=== PATIENT | female | born 2000 | race Caucasian/White ===

== ENCOUNTER 2021-12-19 15:34 | Emergency (ER) | payer BC, SELFPAY ==
--- NOTE | ~2021-12-19 | XR_ITS ---
EXAMINATION: XR chest 2V CLINICAL INFORMATION: Reason for Exam COVID positive, cough COMPARISON: None TECHNIQUE: 2 views of the chest FINDINGS: Low lung volumes. Lungs appear clear. No pneumothorax or pleural effusion. Normal cardiomediastinal silhouette. XR/XR chest 2V Impression: Low lung volumes, however lungs appear clear.
[2021-12-19 15:50] VITALS: BP 142/79; PULSE 115; RESP 16; TEMP 37.6; O2SAT 96; BMI 43.1
--- NOTE | 2021-12-19 17:10 | ED.GENADULT ---
HPI - General Adult General Chief complaint: Fever Stated complaint: covid+ Time Seen by Provider: 12/19/21 15:42 Source: patient Mode of arrival: ambulatory Limitations: no limitations History of Present Illness HPI narrative: 21 yold patient presents to the ED for Covid symptoms. mell tested postive for Covid today. patient states having bodyaches and fever and fatigue. patient denies any chest pain, shortness of breath, pleurisy, leg swelling, calf pain, or coughing up blood. Related Data Allergies Allergy/AdvReac Type Severity Reaction Status Date / Time No Known Allergies Allergy Verified 12/19/21 15:49 Review of Systems Review of Systems: FEver, bodyaches Yes all other systems are reviewed and are negative [facility] Social History Social History Advance Directives: No Advance Directives Information Provided: No Physical Exam ED Vital Signs: Vital Signs - 24 hr 12/19/21 15:50 Temperature 99.6 F Pulse Rate 115 H Respiratory Rate 16 Blood Pressure 142/79 H Pulse Oximetry 96 Oxygen Delivery Method Room Air BMI result Body Mass Index 43.1 Const General: cooperative, healthy appearing, comfortable, no acute distress, well developed, alert, awake and Physically active Orientation/consciousness: oriented to person, oriented to place, oriented to time and patient oriented x3 HENMT Head: Yes normal to inspection, Yes No palpable skull fracture present, Yes normocephalic, Yes atraumatic and No abrasion Eyes General: appearance normal, both eyes and all related structures Neck Neck: Yes normal visual inspection, Yes full ROM, Yes no lymphadenopathy, Yes no meningeal signs, Yes trachea midline, Yes supple, No anterior neck swelling and No tender Chest Chest palpation & inspection: normal inspection of the chest and normal palpation of entire chest wall Resp Effort & Inspection: normal respiratory effort and able to speak in complete sentences Auscultation: clear to auscultation bilaterally Cardio Jugular venous distension: no JVD Heart sounds: S1 normal heart sound present and S2 normal heart sound present GI Inspection: Yes normal to inspection and No abdominal wall ecchymosis Palpation (GI): Soft to palpation, not firm, nontender, no guarding and not rigid General: No CVA tenderness and Yes no CVA tenderness Back/Spine/Pelvis Back: no CVA tenderness, No CVA tenderness and No back tenderness Skin General skin exam: no rashes or lesions noted and elasticity normal Neuro General: oriented to person, oriented to place, oriented to time, patient oriented x3, gait normal, tone normal, moves all extremities and no meningeal signs Cranial nerves: Yes CN's II-XII intact bilaterally Extrem Other: Lower extremities bilaterally negative for swelling, ecchymosis, pitting edema, or calf tederness General: Yes normal to inspection and Yes full ROM Psych Appearance: grossly normal, well kempt and not disheveled Course Course Course Narrative: Known COVID. Well appearing. Reevaluation(s) Reevaluation #1: Patient educated on oral hydration, rest and self-isolation. Presently not suspect an DE or PE. Patient denies any chest pain or shortness of breath. Negative any pleurisy leg swelling or calf pain. Patient educated on respiratory distress and informed to return to the ED immediately if she has any of those symptoms. Time: 18:34 Medical Decision Making MDM Narrative Medical decision making narrative: Covid Discharge Plan Discharge Clinical Impression: COVID-19 Patient Disposition: Home, Self-Care Instructions: COVID-19 (Coronavirus Disease 2019) (ED) Additional Instructions: Return to the ED for any chest pain, shortness of breath, leg swelling, calf pain, coughing up blood, or any other concerning symptoms. Recommend self-isolation. Referrals: Becky Joy MD [Primary Care Provider] - (Covid) Stand Alone Forms: Work/School Release Discharge Date/Time: 12/19/21 17:38 Print Language: Cambodian
== END 2021-12-19 17:38 | disposition home or self-care (01) ==
PROVIDERS: Emergency Provider Emergency Medicine; PCP Internal Medicine
DX: U07.1 COVID-19 (principal); R50.9 Fever, unspecified
CPT/HCPCS: 71046; 99281; 99283

== ENCOUNTER 2022-07-28 17:42 | Outpatient (REF) | payer OTHER, SELFPAY ==
[2022-07-28 18:21] LABS: COVID-19 Test Negative (Negative); IDNOW Serial# 16C4AD1C
== END 2022-07-28 17:43 | disposition home or self-care (01) ==
LOC: HO.LAB 17:42
PROVIDERS: Visit Provider Internal Medicine
DX: Z20.822 Contact with and (suspected) exposure to COVID-19 (principal)
CPT/HCPCS: 87635

== ENCOUNTER 2022-08-18 12:42 | Emergency (ER) | payer OTHER, SELFPAY ==
--- NOTE | ~2022-08-18 | XR_ITS ---
EXAMINATION: XR FOOT, RIGHT CLINICAL INFORMATION: Work injury with pain lateral foot COMPARISON: None TECHNIQUE: AP, lateral, and oblique views of the right foot. FINDINGS: Soft tissue swelling is present laterally. The bones and soft tissues are otherwise normal. No fracture. Alignment is anatomic. Joint spaces are maintained. XR/XR foot RT min 3V IMPRESSION: Lateral soft tissue swelling without fracture.
[2022-08-18 13:15] VITALS: BP 109/83; PULSE 84; RESP 16; O2SAT 99; BMI 40.2
--- NOTE | 2022-08-18 15:33 | ED.GENADULT ---
HPI - General Adult General Chief complaint: Extremity Injury, Lower Stated complaint: R foot inj/Work related Time Seen by Provider: 08/18/22 15:25 Source: patient and RN notes reviewed Mode of arrival: ambulatory Limitations: no limitations History of Present Illness HPI narrative: 21-year-old female presents for evaluation of right foot pain. 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 She reports that she stepped funny? I felt a pop in the foot and then I was walking at all day. ? She reports that she was initially having some minor discomfort and she tried to take it easy with rest, ice, compression elevation for a few days Today while trying to come to where she could not walk up stairs and having difficulty ambulating Patient reports her pain is ?approximately over the 4th metatarsal. She reports a previous fracture to the area Related Data Allergies Allergy/AdvReac Type Severity Reaction Status Date / Time No Known Allergies Allergy Verified 12/19/21 15:49 Review of Systems Constitutional: Constitutional: Reports as per HPI, Denies chills and Denies fatigue Cardiovascular: Cardiovascular: Denies chest pain and Denies dyspnea Respiratory: Respiratory: Denies cough and Denies dyspnea Gastrointestinal: Gastrointestinal: Denies abdominal pain, Denies constipation and Denies vomiting Genitourinary: Genitourinary: Denies dysuria Musculoskeletal: Comments: Right foot pain Endocrine: Endocrine: Denies fatigue PMFSH Social History Social History Advance Directives: No Advance Directives Information Provided: No Physical Exam ED Vital Signs: Vital Signs - 24 hr 08/18/22 13:15 Pulse Rate 84 Respiratory Rate 16 Blood Pressure 109/83 Pulse Oximetry 99 Oxygen Delivery Method Room Air BMI result Body Mass Index 40.2 Const General: healthy appearing, comfortable, no acute distress, alert and awake Nutritional Appearance: well nourished Orientation/consciousness: patient oriented x3 Eyes Eyelids: Yes eyelids normal Conjunctivae: conjunctivae normal Sclerae: sclerae normal Corneas: corneas normal Pupils: Equal, round and reactive pupils present EOM: EOMs intact bilaterally Resp Effort & Inspection: normal respiratory effort, able to speak in complete sentences, no audible wheezes and not labored Skin General skin exam: no rashes or lesions noted and elasticity normal Lesions: no lesions Rashes: no rashes Neuro General: patient oriented x3 Cranial nerves: Yes Equal, round and reactive pupils present Extrem Other: Patient has mild edema to the lateral aspect of the right foot on dorsal surface. Approximately over right 4th and 5th metatarsals. No significant palpable deformity. The area is tender to palpation. No ankle edema or tenderness. Medical Decision Making Medical Decision Making MDM Narrative: X-ray of the right foot negative. Patient will be out of work for the next few days to allow her foot to heal. She will be given a postop shoe. Differential Diagnosis Fracture Contusion Of foot sprain Gout less likely Independent Interpretation I performed an independent interpretation of an: Plain X-Ray (Soft tissue swelling without fracture. Agree with Radiology read) Radiology Impression Discussion of test interpretation with radiology: I have reviewed the radiologist's reading. Discharge Plan Discharge Clinical Impression: Right foot sprain Patient Disposition: Home, Self-Care Instructions: Foot Sprain (ED) Additional Instructions: Your x-ray did not show any fractures the right foot. Continue with rest, ice, compression, elevation. If her symptoms persist after another week, I would repeat an x-ray better evaluate for occult fracture Stand Alone Forms: Work/School Release
== END 2022-08-18 15:49 | disposition home or self-care (01) ==
PROVIDERS: Emergency Provider Emergency Medicine Emergency Medical Services; PCP Nurse Practitioner
DX: S93.601A Unspecified sprain of right foot, initial encounter (principal); X50.1XXA Overexertion from prolonged static or awkward postures, initial encounter; Y93.9 Activity, unspecified; Y92.9 Unspecified place or not applicable; Y99.0 Civilian activity done for income or pay
CPT/HCPCS: 73630; 99282; 99283

== ENCOUNTER 2022-10-26 15:24 | Outpatient (REF) | payer BC, SELFPAY ==
[2022-10-29 08:34] LABS: Gliadin Deamidated IgA Ab <1.0 U/mL; Gliadin Deamidated IgG Ab <1.0 U/mL; Transglutaminase Ab IgG <1.0 U/mL; Transglutaminase IgA <1.0 U/mL
[2022-11-01 14:10] LABS: Endomysial IgA Antibody Negative (Negative)
[2022-11-01 15:18] LABS: Immunoglobulin A <5 mg/dL (47-310)
== END 2022-10-26 15:25 | disposition home or self-care (01) ==
LOC: HO.LAB 15:24
PROVIDERS: PCP Nurse Practitioner; Visit Provider Internal Medicine
DX: R19.7 Diarrhea, unspecified (principal)
CPT/HCPCS: 36415; 82784; 86231; 86258; 86364

== ENCOUNTER 2022-11-02 15:21 | Outpatient (REF) | payer BC, SELFPAY ==
[2022-11-02 17:01] LABS: Influenza A PCR NEGATIVE (Negative); Influenza B PCR NEGATIVE (Negative); Resp Syncy Virus RNA Qual PCR NEGATIVE (Negative); SARS COV2 PCR INHOUSE NEGATIVE (Negative)
== END 2022-11-02 15:22 | disposition home or self-care (01) ==
LOC: HO.LAB 15:21
PROVIDERS: Visit Provider Internal Medicine
DX: Z20.822 Contact with and (suspected) exposure to COVID-19 (principal); R43.9 Unspecified disturbances of smell and taste
CPT/HCPCS: 0241U

== ENCOUNTER 2022-11-19 19:09 | Emergency (ER) | payer BC, SELFPAY ==
--- NOTE | ~2022-11-19 | XR_ITS ---
EXAMINATION: XR KNEE, RIGHT CLINICAL INFORMATION: Injury. COMPARISON: None available. TECHNIQUE: Four views of the right knee. FINDINGS: Postsurgical changes from ACL repair. Nonspecific 1 cm well-corticated osseous fragment along the anterior third of the joint space on the lateral view. Small joint effusion. XR/XR knee RT 3V IMPRESSION: 1. Nonspecific 1 cm well-corticated osseous fragment along the anterior third of the joint space, could be sequela of prior trauma or surgery. Correlation with CT or MR could be obtained as clinically indicated. 2. Small joint effusion. 3. Postsurgical changes from ACL repair.
[2022-11-19 19:18] VITALS: BP 123/89; PULSE 103; RESP 18; TEMP 36.7; O2SAT 99; BMI 39.9
[2022-11-19] MEDS: oxyCODONE HCl Immed Release 5 MG TABLET PO (20:16)
--- NOTE | 2022-11-19 20:20 | ED_ITS ---
HPI - Extremity Injury (Lower) General Chief Complaint: Extremity Injury, Lower Stated Complaint: right knee pain, work inj Time Seen by Provider: 11/19/22 19:36 Source: patient Mode of arrival: ambulatory Limitations: no limitations History of Present Illness HPI Narrative: Right knee injury while working. 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 Patient had a history of right knee surgery for ligamentous injury in the past. Related Data Previous Rx's Medication Instructions Recorded azithromycin 250 mg tablet See Rx Instructions PO .COMPLEX #6 11/02/22 (Zithromax) tabs oxycodone 5 mg tablet 5 mg PO Q8H PRN pain #20 tabs 11/19/22 Allergies Allergy/AdvReac Type Severity Reaction Status Date / Time No Known Allergies Allergy Verified 11/02/22 14:21 Review of Systems Review of Systems: All other systems are reviewed and are negative Constitutional: Reports as per HPI and Reports no additional constitutional complaints Eyes: Reports as per HPI and Reports no additional eye complaints Reports system reviewed and no additional complaints, except as documented Cardiovascular: Reports as per HPI and Reports no additional cardiovascular complaints Respiratory: Reports as per HPI and Reports no additional respiratory complaints Gastrointestinal: Reports as per HPI and Reports no additional gastrointestinal complaints Genitourinary: Reports no additional female genitourinary complaints Musculoskeletal: Reports no additional musculoskeletal complaints Skin/Breast: Reports system reviewed and no additional complaints, except as docu Psychiatric: Reports no additional psychiatric complaints Endocrine: Reports no additional endocrine complaints Hematologic/Lymphatic: Reports no additional hematologic/lymphatic complaints Allergic/Immunologic: Reports no additional allergic/immunologic complaints Reports system reviewed and no additional complaints, except as documented and Reports Abnormal speech present. [facility] Social History Social History Advance Directives: No Advance Directives Information Provided: Yes Physical Exam Vital Signs: Vital Signs: Last Vital Signs Temp 98.1 F 11/19/22 19:18 Pulse 103 H 11/19/22 19:18 Resp 18 11/19/22 19:18 BP 123/89 11/19/22 19:18 Pulse Ox 99 11/19/22 19:18 O2 Del Method Room Air 11/19/22 19:18 BMI result Body Mass Index 39.9 Vital signs have been reviewed as appeared to be correct. Blood pressure normal. Heart rate normal. Respiration rate normal. Temperature normal. Oxygen saturation normal. Appearance: Alert. Oriented X3. No acute distress. Head: Normal external exam. Normocephalic. Atraumatic. No Marquez signs noted. No raccoon eyes noted Eyes: PERRLA. EOMI. Conjunctiva and sclera normal. Eyelids normal. ENT: TM's Normal. Pharynx normal. Uvula midline. Moist mucous membranes. No trismus noted. No drooling noted. No muffled voice noted. Neck: Normal inspection. Neck supple. FROM. No adenopathy. Thyroid Normal. No meningeal signs. No neck mass noted. CVS: Normal heart rate and rhythm. Heart sound normal. No murmurs noted. Pulses normal throughout. Respiratory: No respiratory distress. Painless inspiration. Breath sounds normal. No wheezes/rales/rhonchi noted. Chest nontender. No accessory muscle usage noted or decreased air movement noted. Abdomen: Soft and nontender. Bowel sounds normal in all 4 quadrants. No distention noted. No organomegaly noted. No visible injury noted. Back: No CVA tenderness. Full range of motion noted. Skin: Skin warm and dry. Normal skin color. Normal skin turgor. No rashes/lesions/lacerations noted. Extremities: Tenderness over medial meniscal ligament, no swelling, limited flexion of the left knee, no deformity. Neuro: Oriented X 3. Cranial nerve exam: II-XII are grossly intact No motor deficit. No sensory deficit. Reflexes normal. Medications Administered Discontinued Medications Generic Name Dose Route Start Last Admin Trade Name Freq PRN Reason Stop Dose Admin Oxycodone HCl 5 mg 11/19/22 19:50 11/19/22 20:16 Oxycodone Hcl Immed Release 5 Mg Tablet PO 11/19/22 19:51 5 mg ONCE ONE Administration Medical Decision Making Medical Decision Making MDM Narrative: Work related right knee injury, no acute fracture, likely medial meniscal ligament injury, knee immobilizer, crutches, ice, pain control, follow-up with Ortho as an outpatient. Differential Diagnosis Differential Diagnoses: The differential diagnosis associated with the presentation includes (Knee fracture, ligamentous injury, sprain.) Independent Interpretation I performed an independent interpretation of an: Plain X-Ray (Right knee: No acute fracture.) Radiology Impression Discussion of test interpretation with radiology: I have reviewed the radiologist's reading. Discharge Plan Discharge Clinical Impression: Acute internal derangement of knee Patient Disposition: Home, Self-Care Instructions: Knee Sprain (ED) Prescriptions: New oxycodone 5 mg tablet 5 mg PO Q8H PRN (Reason: pain) Qty: 20 0RF Rx Instructions: Partial Fill upon patient request. No Action azithromycin [Zithromax] 250 mg tablet See Rx Instructions PO .COMPLEX Qty: 6 0RF Rx Instructions: take 500 mg today (day 1), then 250 mg for 4 days (days 2-5) PO Referrals: Timothy Rm MD [Physician] - Sandra Hook NP [Primary Care Provider] - Stand Alone Forms: Work/School Release
[2022-11-19 21:04] VITALS: BP 120/75; PULSE 84; RESP 18; O2SAT 97
[2022-11-19 22:23] VITALS: RESP 16
== END 2022-11-19 22:12 | disposition home or self-care (01) ==
PROVIDERS: Emergency Provider Emergency Medicine; PCP Nurse Practitioner
DX: Z04.2 Encounter for examination and observation following work accident (principal); M23.91 Unspecified internal derangement of right knee
CPT/HCPCS: 73562; 99283; 99284

== ENCOUNTER 2022-11-21 14:07 | Outpatient (REF) | payer BC, SELFPAY ==
--- NOTE | ~2022-11-21 | XR_ITS ---
EXAMINATION: XR KNEE AP STANDING CLINICAL INFORMATION: Pain COMPARISON: X-ray 11/19/2022 TECHNIQUE: AP bilateral standing view of the knees was obtained. Right single patellar sunrise view. FINDINGS: AP bilateral knees: Right knee: Postsurgical changes from ACL repair redemonstrated. Tiny marginal osteophytes in the medial and lateral compartment. Previously seen osseous fragment is not clearly evident on these views. No acute fractures seen. Left knee: Anatomic alignment. Joint spaces are maintained. XR/XR knee RT 1V IMPRESSION: Postsurgical changes from ACL repair in the right knee.
--- NOTE | ~2022-11-21 | XR_ITS ---
EXAMINATION: XR KNEE AP STANDING CLINICAL INFORMATION: Pain COMPARISON: X-ray 11/19/2022 TECHNIQUE: AP bilateral standing view of the knees was obtained. Right single patellar sunrise view. FINDINGS: AP bilateral knees: Right knee: Postsurgical changes from ACL repair redemonstrated. Tiny marginal osteophytes in the medial and lateral compartment. Previously seen osseous fragment is not clearly evident on these views. No acute fractures seen. Left knee: Anatomic alignment. Joint spaces are maintained. XR/XR knee standing BI IMPRESSION: Postsurgical changes from ACL repair in the right knee.
== END 2022-11-21 14:08 | disposition home or self-care (01) ==
LOC: HO.HOSX 14:07
PROVIDERS: PCP Nurse Practitioner; Visit Provider Physician Assistant
DX: S83.241A Other tear of medial meniscus, current injury, right knee, initial encounter (principal); M23.91 Unspecified internal derangement of right knee; X58.XXXA Exposure to other specified factors, initial encounter; Y93.9 Activity, unspecified; Y92.239 Unspecified place in hospital as the place of occurrence of the external cause; Y99.0 Civilian activity done for income or pay
CPT/HCPCS: 73560; 73565

== ENCOUNTER 2022-11-22 11:51 | Outpatient (REF) | payer BC, SELFPAY ==
--- NOTE | ~2022-11-22 | MR_ITS ---
EXAMINATION: MR KNEE WITHOUT CONTRAST, RIGHT CLINICAL INFORMATION: Unspecified internal derangement of the knee. Patient reports pain, swelling, ACL and medial meniscus repair 2018. COMPARISON: X-ray 11/21/2022. TECHNIQUE: MRI of the knee without contrast was performed using routine sequences on a high-field scanner. FINDINGS: MENISCI: Medial Meniscus: T2 signal in the posterior horn with undersurface irregularity. T2 signal in the body extending to the undersurface, and horizontal signal extending to the free edge. These findings could reflect sequela of meniscal repair, age-indeterminate meniscal tear. Lateral Meniscus: T2 signal in the anterior horn extending to the superior surface. Inner margin truncation in the body. T2 signal in the body extending to the undersurface in the mid/posterior aspect. This could reflect sequela of meniscal repair, meniscal tear, or a combination of these. Horizontal fluid intensity signal extending to the undersurface of the free edge in the posterior horn, suspicious for tear. LIGAMENTS: Cruciate: Postsurgical changes status posterior ACL reconstruction. There is diffuse T2 signal within the graft, with slight ill-definition of the surface of the graft. This could reflect degenerative changes, partial tear, or a combination of these. There is amorphous tissue with heterogeneous signal in the anterior intercondylar region, which posteriorly extends to the ACL graft. This measures approximately 2 cm AP, 1.1 cm craniocaudal. Differential considerations for arthrofibrosis, torn displaced ACL graft fibers. There is T2 signal in the proximal/mid PCL reflect mucoid degeneration or sprain/partial tear. Collateral: Intact. EXTENSOR MECHANISM: Intact. ARTICULAR CARTILAGE/BONE: Patellofemoral Compartment: Cartilage thinning and fissuring in the medial aspect of the medial patellar facet. Medial Compartment: Cartilage thinning of the posterior tibial plateau, subchondral tibial edema. Marginal osteophytes. Lateral Compartment: Marginal osteophytes. Lateral tibial plateau of patchy foci of cartilage thinning. JOINT FLUID AND BURSAE: Small effusion. 0.6 centimeter ossification in the anterior intercondylar region, also seen on the recent x-ray, could reflect a loose body versus sequela for trauma.. There is low signal foci in the posterior joint space, which could reflect synovitis/debris/loose bodies. MR/MR knee RT wo con IMPRESSION: 1. Abnormal findings in the posterior horn and body of the medial meniscus, could reflect sequela of meniscal repair, age-indeterminate meniscal tear or a combination of these. 2. Abnormal findings in the anterior horn and body of the lateral meniscus, could reflect sequela of meniscal repair, meniscal tear, or a combination of these. Findings in the posterior horn, suspicious for a horizontal tear, of indeterminate age. 3. Signal changes in the ACL graft, could reflect degeneration, partial tear, or a combination of these. There is amorphous tissue in the anterior intercondylar region, extending posteriorly to the ACL graft. This measures approximately 2 x 1.1 cm. Differential considerations for arthrofibrosis, torn displaced ACL graft fibers. 4. PCL findings could reflect mucoid degeneration or sprain/partial tear. 5. Mild tricompartment arthritis. 6. Small effusion. Loose body/chronic ossification in the anterior intercondylar region. Low signal foci in the posterior joint space, could reflect synovitis/debris/loose bodies.
== END 2022-11-22 11:52 | disposition home or self-care (01) ==
LOC: HO.MRI 11:51
PROVIDERS: Visit Provider Physician Assistant
DX: M23.91 Unspecified internal derangement of right knee (principal)
CPT/HCPCS: 73721

== ENCOUNTER 2022-12-07 10:22 | Day surgery (SDC) | payer OTHER, SELFPAY ==
--- NOTE | 2022-11-29 09:45 | HO.ANESPROP2 ---
Documented by User: Maeve Fitch NP 12/05/22 13:22 HPI - Anesthesia Eval Consult details Narrative: 22yo F for Right Knee Arthroscopy 12/07/22 PMF Active Problems Active Problems: All Active Problems (Updated 11/21/22 @ 14:43 by Michelle Mckinney) Tear of medial meniscus of right knee (Acute) Internal derangement of right knee (Acute) Upper respiratory tract infection (Acute) COVID-19 (Acute) Past Medical History Medical History (Updated 11/29/22 @ 09:46 by Maeve Fitch NP) Asthma PCOS (polycystic ovarian syndrome) Family History Family history of problems with anesthesia: No Surgical History Surgical History (Updated 11/29/22 @ 09:47 by Maeve Fitch NP) H/O medial meniscus repair of right knee S/P ACL repair History of Problems with Anesthesia: No Social History Social History (Updated 11/21/22 @ 14:17 by Nima Munoz) Alcohol intake: current Alcohol intake frequency: holidays/special occasions only Patient Tobacco Use Status: Never used Tobacco Are you DNR?: No Advance Directives: No Advance Directives Information Provided: Yes Patient : No FDLMP: now Current occupational status: employed Current occupation: emergency nurse Meds Allergies Allergy/AdvReac Type Severity Reaction Status Date / Time No Known Allergies Allergy Verified 11/21/22 14:15 Home Medications Medication Instructions Recorded Confirmed Last Taken Type cholestyramine (with sugar) 4 gram g PO 11/21/22 12/06/22 History oral powder dicyclomine 10 mg capsule 10 - 20 mg PO Q6H PRN cramps 11/21/22 12/06/22 History metformin 500 mg tablet 1,000 mg PO BID 11/21/22 12/06/22 History spironolactone 100 mg tablet 100 mg PO DAILY 11/21/22 12/06/22 History albuterol sulfate 90 mcg/actuation 1 inh inhalation QID PRN Wheezing 12/07/22 12/07/22 Unknown History aerosol inhaler Exam Exam Date and Time: November 29, [id number] Assessment and Plan Final Anesthetic Review Family History of Problems with Anesthesia: No History of Problems with Anesthesia: No Documented by User: Yan Connolly MD 12/07/22 13:05 PMF Past Medical History Medical History (Updated 11/29/22 @ 09:46 by Maeve Fitch NP) Asthma PCOS (polycystic ovarian syndrome) Surgical History Surgical History (Updated 11/29/22 @ 09:47 by Maeve Fitch NP) H/O medial meniscus repair of right knee S/P ACL repair Social History Social History (Updated 11/21/22 @ 14:17 by Nima Munoz) Alcohol intake: current Alcohol intake frequency: holidays/special occasions only Patient Tobacco Use Status: Never used Tobacco Are you DNR?: No Advance Directives: No Advance Directives Information Provided: Yes Patient : No FDLMP: now Current occupational status: employed Current occupation: emergency nurse Meds Allergies Allergy/AdvReac Type Severity Reaction Status Date / Time No Known Allergies Allergy Verified 11/21/22 14:15 Home Medications Medication Instructions Recorded Confirmed Last Taken Type cholestyramine (with sugar) 4 gram g PO 11/21/22 12/06/22 History oral powder dicyclomine 10 mg capsule 10 - 20 mg PO Q6H PRN cramps 11/21/22 12/06/22 History metformin 500 mg tablet 1,000 mg PO BID 11/21/22 12/06/22 History spironolactone 100 mg tablet 100 mg PO DAILY 11/21/22 12/06/22 History albuterol sulfate 90 mcg/actuation 1 inh inhalation QID PRN Wheezing 12/07/22 12/07/22 Unknown History aerosol inhaler Exam Airway Mallampati Class: II TM Dist: >3cm Neck ROM: Full Heart: rrr Lungs: cta Assessment and Plan Assessment Anesthesia Assessment: Anesthesia Plan Discussed Final Anesthetic Review NPO: Yes ASA Class: II Final Preanesthetic Review: No Changes in Pt Med Stat, Meds/Allgs Chart Reviewed, Consent Obtained/Reviewed and Anes Risks/Benef Reviewed Patient Risk: Intermediate Procedure Risk: Intermediate Anesthetic Plan Anesthetic Plan: GA and Agree w/ Assess. and Plan Disposition: Standard PACU
[2022-12-07] VITALS (8 sets, daily range): BP systolic 124–175; BP diastolic 78–99; PULSE 79–93; RESP 16–20; TEMP 36.2–36.7; O2SAT 98; BMI 39.9
[2022-12-07] MEDS: Lactated Ringers 1,000 ML 100 ML IVCONT (11:13)
[2022-12-07 11:41] LABS: UPreg QC Valid YES; Urine Pregnancy NEGATIVE (NEGATIVE)
--- NOTE | 2022-12-07 13:59 | MHC.SHP ---
Pre-Procedural Eval Section A Date of Service: 12/07/22 The patient is an INPATIENT: No Changes since office visit: No Cold of Flu in the past 2 weeks, No New Medical Problems, No Changes in Medication and No Patient answered all questions The History & Physical has been completed within 30 days and I have reviewed it.: Yes Section B Chief Complaint: Other tear of medial meniscus, current injury, rig Allergies: Allergies Allergy/AdvReac Type Severity Reaction Status Date / Time No Known Allergies Allergy Verified 11/21/22 14:15 Plan I have reviewed the history and physical and performed a pertinent physical examination on my patient. No changes have occurred unless specified. Time Spent With Patient Time: Total time managing care of this patient today ____ minutes.
--- NOTE | 2022-12-07 14:58 | P.BOP_ITS ---
Brief Operative Note Date of Service: 12/07/22 Pre-op diagnosis: Right mmt Post-op diagnosis: other (right mmt, right lmt, right loose body) Procedure: Removal of loose body, partial medial and lateral meniscectomy Surgeon: Timothy Rm MD Anesthesia: GETA and local Was an Medical Records Clerk used for this Procedure?: No Estimated blood loss (mL): 0 Tourniquet time (min): 25 IV fluids (mL): 800 Pathology: none sent Condition: stable Disposition: PACU
[2022-12-07] MEDS: fentaNYL citrate/PF 100 MCG/2 ML VIAL 25 MCG IVPUSH (15:28)
[2022-12-07] MEDS: oxyCODONE HCl Immed Release 5 MG TABLET PO (15:28)
[2022-12-07] MEDS: ondansetron HCL 4 MG/2 ML VIAL IVPUSH (15:45)
--- NOTE | 2022-12-08 19:30 | W.PM.OPN ---
Operative Note Operative Note Date of Service: 12/08/22 Narrative: Date of Service: 12/07/22 Pre-op diagnosis: Right mmt Post-op diagnosis: other (right mmt, right lmt, right loose body) Procedure: Removal of loose body, partial medial and lateral meniscectomy Surgeon: Timothy Rm MD Anesthesia: GETA and local Was an Customer Support Executive used for this Procedure?: No Estimated blood loss (mL): 0 Tourniquet time (min): 25 IV fluids (mL): 800 Pathology: none sent Condition: stable Disposition: PACU Procedure in detail: Patient was brought to the operating room placed supine on the arthroscopic table and prepped and draped in standard sterile fashion. A time-out was called to identify proper site proper procedure proper surgeon and IV antibiotics per weight were administered. SHe had a +1 Beth's with NEGATIVE PIVOT SHIFT. I began by exsanguinating the limb and insufflating tourniquet to 300 mm Hg. Then made a standard anterolateral stab incision. The knee was insufflated with water and 30 degree arthroscope was placed. There was grade 0 fibrillations of the patella and suprapatellar pouch and gutters were clean. I descended into the medial compartment where I made my medial portal under direct visualization. There was obvious of tear of the body and posterior horn of the medial meniscus. Prior repair suture were in place. A portion of the root was intact.There was grade 0 changes in medial compartment. I used a combination of biter shaver and cautery to remove unstable portions of the meniscus. Approximately 50% meniscal volume was removed. Once I was satisfied with this the ACL was examined. There was a large displaced portion of synovilized meniscus in the notch with a osseous body loosely attached to the anterior tibia. This was removed with a biter and shaver. The meniscal fragment was not funtional or repairable and was removed. The lateral compartment was examined and there was also evidence of prior repair but this was stable with small peripheral tearing which was debrided. There were G1/2 changes of the medial portion of the lateral tibial plateau. The reconstructed ACL was intact. I then removed all instrumentation and closed the portals with skin glue. 25 mL of 2% Marcaine with epinephrine was injected into the joint and the surrounding soft tissues. Patient was then placed in sterile dressing extubated brought recovery room stable condition. There were no known complications.
== END 2022-12-07 16:24 | disposition home or self-care (01) ==
PROVIDERS: Nurse Practitioner; PCP Nurse Practitioner; Visit Provider Orthopaedic Surgery
PROC: (CPT 29870; principal; 2022-12-07 12:00)
DX: S83.241A Other tear of medial meniscus, current injury, right knee, initial encounter (principal); S83.261A Peripheral tear of lateral meniscus, current injury, right knee, initial encounter; M25.561 Pain in right knee; M23.41 Loose body in knee, right knee; M25.461 Effusion, right knee; M23.91 Unspecified internal derangement of right knee; R20.2 Paresthesia of skin; X58.XXXA Exposure to other specified factors, initial encounter; Y93.02 Activity, running; Y92.238 Other place in hospital as the place of occurrence of the external cause; Y99.0 Civilian activity done for income or pay; J45.909 Unspecified asthma, uncomplicated; E28.2 Polycystic ovarian syndrome; Z98.890 Other specified postprocedural states; Z79.899 Other long term (current) drug therapy; Z79.84 Long term (current) use of oral hypoglycemic drugs
CPT/HCPCS: 29880; 81025; J0171; J0690; J1100; J1170; J2405; J2795; J3010

== ENCOUNTER → 2022-12-12 13:57 | Outpatient (BNVA) | payer OTHER, BC, SELFPAY | PROVIDERS: PCP Nurse Practitioner; Visit Provider Physician Assistant ==

== ENCOUNTER 2023-01-12 12:00 | Outpatient (RCR) | payer OTHER, BC, SELFPAY ==
--- NOTE | 2022-12-14 14:43 | MHC.PT.EP ---
[facility] [place] [facility] [place] Office [place] Office [address] Asiya Drummond [address] [phone] F: [phone] F: [phone] F: [phone] F: [phone] Physical Therapy Plan of Care Date of Evaluation: Date of Surgery: 11/30/22 Diagnosis: s/p R knee meniscectomy and loose body removal 11/30/22 (RL) Assessment: pt is a 22 y/o female presenting to physical therapy w/ referring diagnosis of R knee . pt underwent partial medial meniscectomy and loose body removal on 11/30/22. Impairments include pain, decreased range of motion, decreased strength, impaired functional mobility, impaired postural awareness, and altered ambulation mechanics. pt is an excellent candidate for skilled PT due to age, potential remediation of impairments, typical disease/condition progression and prognosis, comorbidities, and motivation. pt would benefit from skilled PT intervention to provide a tailored strengthening and stretching exercise program, functional training, gait training, postural re-training, neuromuscular re-education, modalities as needed for pain, equipment safety demonstration. Frequency and Duration: The patient will be seen 2x/wk for 5 wks Short Term Goals: pt will be I w/ HEP to promote self-management of condition. pt will improve R knee extension to 0 degrees to promote ease in sit<>stand transfer. Half-Way Goals: pt will improve R quad and hamstring strength to 5/5 to promote full return to full duty at work. pt will report a statistically significant improvement in self-reported outcome measure, LEFI, to promote return to PLOF. pt will ascend/descend two fights of stairs w/ reciprocal pattern to access primary living spaces and community. Treatment Plan: Modalities to reduce pain, spasms and effusion. Manual therapy to restore motion and function. Therapeutic exercise to improve strength and flexibility. Neuromuscular re-education for posture and balance. Therapeutic activities to return to functional activities of daily living. Electronically signed by: Liz Garber PT, DPT Please sign and return to therapist. Thank you for your referral.
--- NOTE | 2023-01-19 13:24 | MHC.PT.DC ---
[facility] [place] Office [place] Office [place] Office [address] Asiya Drummond [address] [phone] F: [phone] F: [phone] F: [phone] F: [phone] Physical Therapy Discharge Report Diagnosis: s/p R knee meniscectomy and loose body removal 11/30/22 (RL) Date of Surgery: 11/30/22 Date of Evaluation: 12/14/22 Date of Discharge: 01/19/23 Treatments to Date: 8 Cancellations to Date: 3 No Shows to Date: 0 Discharge Status: Improved Function Independent with HEP Discharge Summary: The patient overall has been reporting little to no knee pain over the past several visits. She reported she is able to walk several miles, stand for up to 3 hours at a time, and hiked this past weekend without pain and no instances of instability. She is independent with her home exercise program. She was encouraged to continue with her exercises at home to maintain gains made in PT. She is discharged from this physical therapy plan of care to her HEP. Electronically signed by: Liz Garber PT, DPT Please sign and return to therapist. Thank you for your referral.
== END 2023-01-19 14:09 | disposition home or self-care (01) ==
LOC: HO.PT 12:00
PROVIDERS: PCP Nurse Practitioner; Visit Provider Physician Assistant
DX: S83.241D Other tear of medial meniscus, current injury, right knee, subsequent encounter (principal)
CPT/HCPCS: 97110; 97112; 97161; 97530

== ENCOUNTER 2023-01-12 13:08 | Outpatient (AMB) | payer OTHER, BC, SELFPAY ==
--- NOTE | 2023-01-12 13:13 | A.OFFVIS_ITS ---
Intake Vital Signs 01/12/23 13:14 Height 5 ft 2 in Weight 218 lb BMI 39.9 Intake Visit Reasons: p.o-Rt knee 11/30/22 Intake Note: Norma a 22 year old female who presents today for a post operative right knee on 11/30/22. Patient reports she is doing well, she has no concerns. She has completed PT with today being her last day. Denies any pain. Allergies No Known Allergies Allergy (Verified 01/12/23 13:16) HPI p.o-Rt knee 11/30/22 HPI Details 22-year-old female who returns to the office today for post-op right knee , 11/30/22. She denies pain, catching or locking and is doing well overall. She has completed her physical therapy with today being her last day. She has no concerns today. FORMERLY [facility] Medical History Asthma PCOS (polycystic ovarian syndrome) Surgical History H/O medial meniscus repair of right knee S/P ACL repair Social History Alcohol intake: current Alcohol intake frequency: holidays/special occasions only Patient Tobacco Use Status: Never used Tobacco Current occupational status: employed Current occupation: emergency nurse Review of Systems Const All systems reviewed & are unremarkable except as noted in HPI and below Physical Exam Vital Signs: BMI result Body Mass Index 39.9 Extrem Other: Right knee: Incision clean, dry and intact. No erythema or drainage. No joint effusion. ROM is 0-100 degrees. Calf supple, nontender. NVI. Assessment & Plan Assessment & Plan (1) S/P right knee arthroscopy: Code(s): Z98.890 - Other specified postprocedural states Plan She is doing well post operatively. She has completed physical therapy and has no limitations with activity. She will return to to work full duty with no restrictions on January 16 and will see us back as needed. Patient Instructions: Scribed for Arcelia Shaw PA-C, by Vazquez Headley director global medical affairs, on 01/12/2023 at 1:15 PM EST. IArcelia PA-C, have personally reviewed and agree with the information entered by the scribe. Coding Level of Care Code Global (03301) Diagnoses S/P right knee arthroscopy Z98.890
[2023-01-12 13:14] VITALS: BMI 39.9
== END 2023-01-12 13:23 | disposition home or self-care (01) ==
PROVIDERS: PCP Nurse Practitioner; Visit Provider Physician Assistant
DX: S83.241D Other tear of medial meniscus, current injury, right knee, subsequent encounter (principal); Z48.89 Encounter for other specified surgical aftercare
CPT/HCPCS: 99024

== ENCOUNTER → 2023-01-12 13:08 | Outpatient (BNVA) | payer OTHER, BC, SELFPAY | PROVIDERS: PCP Nurse Practitioner; Visit Provider Physician Assistant ==

== ENCOUNTER 2023-03-07 03:06 | Emergency (ER) | payer BC, SELFPAY ==
--- NOTE | 2023-03-07 | ECG_ITS ---
Test Reason : CHEST PAIN Blood Pressure : / mmHG Vent. Rate : 072 BPM Atrial Rate : 072 BPM P-R Int : 178 ms QRS Dur : 078 ms QT Int : 362 ms P-R-T Axes : 022 003 022 degrees QTc Int : 396 ms Normal sinus rhythm Cannot rule out Anterior infarct , age undetermined Abnormal ECG No previous ECGs available Referred By: Generic ED Physician Electronically Signed By:CELESTINO SOSA
--- NOTE | ~2023-03-07 | XR_ITS ---
EXAMINATION: XR CHEST CLINICAL INFORMATION: Pain COMPARISON: 12/19/2021 TECHNIQUE: Frontal view of the chest was obtained. FINDINGS: The lungs are clear with no focal consolidation. No evidence of pneumothorax, pulmonary edema, or pleural effusions. The cardiomediastinal silhouette is unremarkable. No acute osseous findings. XR/XR chest 1V IMPRESSION: No acute pulmonary findings.
[2023-03-07 03:08] VITALS: BP 145/88; PULSE 87; RESP 18; TEMP 36.4; O2SAT 100; BMI 39.7
[2023-03-07 04:37] LABS: Basophils Percent Auto 0.3 % (0-2); Eosinophils Absolute Auto 0.3 X10*3/uL (0.0-0.4); Eosinophils Percent Auto 2.3 % (0-4); Hematocrit 39.4 % (37.0-47.0); Hemoglobin 13.4 g/dl (12.0-16.0); Imm Gran Abs Auto 0.03 X10*3/uL (0.00-0.03); Imm Gran Pct Auto 0.3 % (0.0-0.4); Lymphocytes Absolute Auto 2.2 X10*3/uL (1.2-4.9); Lymphocytes Percent Auto 18.6 % (20-40); MANUAL DIFF FLAG NO; Mean Corpuscular Hemoglobin 28.2 pg (27.0-33.0); Mean Corpuscular Volume 82.9 fL (80.0-98.0); Mean Platelet Volume 9.2 fL (9.4-12.3); Monocytes Absolute Auto 1.1 X10*3/uL (0.1-1.2); Monocytes Percent Auto 9.1 % (2-11); Neutrophils Absolute Auto 8.3 x10*3/uL (2.0-8.3); Neutrophils Percent Auto 69.4 % (45-73); Platelet Count 324 X10*3/uL (160-400); Red Blood Count 4.75 X10*6/uL (4.20-5.50); Red Cell Distribution Width 12.4 % (11.0-16.0)
--- NOTE | 2023-03-07 04:42 | ED_ITS ---
HPI - Chest Pain General Chief Complaint: Chest Pain Stated Complaint: Chest pain Time Seen by Provider: 03/07/23 03:54 Source: patient Mode of arrival: ambulatory Limitations: no limitations History of Present Illness HPI narrative: 22 yo female hx of PCOS on OCPS, prior cholecystectomy here with 6 days of pleuritic chest pain and WAGNER - no recent travel or procedures, no recent URI or vaccines. No hx of CAD or early CAD in family. Does not hurt to touch her chest. MD complaint: chest pain Onset (ago): day(s) (6) Timing of current episode: episodic Prior episodes: No Onset: during rest and during exertion Pain location: substernal Pain radiation: none Severity: moderate Quality: sharp Relieving factors: nothing Exacerbating factors: inspiration and movement Associated symptoms: nausea and dyspnea Treatment prior to arrival: none Related Data Home Medications Medication Instructions Recorded Confirmed cholestyramine (with sugar) 4 gram g PO 11/21/22 oral powder dicyclomine 10 mg capsule 10 - 20 mg PO Q6H PRN cramps 11/21/22 metformin 500 mg tablet 1,000 mg PO BID 11/21/22 spironolactone 100 mg tablet 100 mg PO DAILY 11/21/22 albuterol sulfate 90 mcg/actuation 1 inh inhalation QID PRN Wheezing 12/07/22 12/07/22 aerosol inhaler Previous Rx's Medication Instructions Recorded ondansetron 4 mg disintegrating 4 mg PO Q8H PRN nausea and 03/07/23 tablet vomiting #20 tabs prednisone 20 mg tablet 40 mg (2 x 20 mg) PO DAILY 5 days 03/07/23 #10 tabs Allergies Allergy/AdvReac Type Severity Reaction Status Date / Time No Known Allergies Allergy Verified 01/12/23 13:16 Review of Systems 2 Review of Systems: Constitutional : No Weight loss, No Fever, No Chills ENT/Mouth : No sore throat, No Rhinorrhea Eyes: No Eye Pain, No Swelling Cardiovascular : pos Chest Pain, pos SOB, pos Dyspnea on Exertion, No Orthopnea, No Edema, No Palpitations Respiratory : No Cough, No Sputum Gastrointestinal : pos Nausea, No Vomiting, No Diarrhea, No abdominal Pain, No Hematochezia, No Melena Genitourinary : No Dysuria, No Urinary Frequency Musculoskeletal : No joint pain, No Myalgias, No Joint Swelling Skin : No Skin Lesions, No rash Neuro : No Weakness, No Numbness, No Dizziness, No Headache Psych : No Anxiety/Panic, No Depression All other systems reviewed and are negative [facility] Past Medical History Attestation statement: The following information was validated with the patient. Source: old records reviewed Medical History Asthma PCOS (polycystic ovarian syndrome) Surgical History H/O medial meniscus repair of right knee S/P ACL repair Social History Social History Alcohol intake: current Alcohol intake frequency: holidays/special occasions only Patient Tobacco Use Status: Never used Tobacco Advance Directives: No Advance Directives Information Provided: Yes Current occupational status: employed Current occupation: emergency nurse Physical Exam 2 Vital Signs: Vital Signs: Last Vital Signs Temp 98.3 F 03/07/23 05:08 Pulse 81 03/07/23 05:08 Resp 14 03/07/23 05:08 BP 110/72 03/07/23 05:08 Pulse Ox 97 03/07/23 05:08 O2 Del Method Room Air 03/07/23 05:08 BMI result Body Mass Index 39.7 Appearance: Alert. Oriented X3. No acute distress. Eyes: Pupils equal, round and reactive to light. ENT: Pharynx normal. Neck: Normal inspection. Neck supple. CVS: Normal heart rate and rhythm. Pulses normal. Chest: nontender Respiratory: No respiratory distress. Breath sounds normal. Abdomen: Soft and nontender. Skin: Skin warm and dry. Normal skin color. Normal skin turgor. Extremities: No lower extremity edema. No calf ttp Neuro: Oriented X 3. No motor deficit. No sensory deficit. Medications Administered Discontinued Medications Generic Name Dose Route Start Last Admin Trade Name Freq PRN Reason Stop Dose Admin Sodium Chloride 1,000 mls @ 999 mls/hr 03/07/23 04:45 03/07/23 05:55 Ns IV 03/07/23 05:45 Infused .Q1H1M MOIZ Infusion Ondansetron HCl 4 mg 03/07/23 04:44 03/07/23 04:53 Ondansetron Hcl 4 Mg/2 Ml Vial IVPUSH 03/07/23 04:45 4 mg ONCE ONE Administration Procedures Procedure Narrative Procedure Narrative: bedside US no pericardial effusion noted at this time. apical subxiphoid parasternal views. Medical Decision Making Medical Decision Making [facility] Narrative: 22 yo female no sig PMH on OCPs here with c/o nausea and pleuritic chest pain with WAGNER x 6 days. Has no abdominal pain or recent URI symptoms no ACS risk factors will obtain basic labs, EKG, CXR and troponin x 1 given duration and ddimer. Will get bedside ECHO for effusion. Differential Diagnosis Differential Diagnoses: The differential diagnosis associated with the presentation includes PE, atypical ACS, chest pain. Admission/Observation Consideration of admission/observation: Escalation of care including admission/observation considered Lab Data [facility] Lab Attestation statement: I reviewed the patient's lab results. 03/07/23 04:31 03/07/23 04:31 Labs: Lab Results 03/07/23 Range/Units 04:31 WBC 12.0 H (4.8-10.8) X10*3/uL RBC 4.75 (4.20-5.50) X10*6/uL Hgb 13.4 (12.0-16.0) g/dl Hct 39.4 (37.0-47.0) % MCV 82.9 (80.0-98.0) fL MCH 28.2 (27.0-33.0) pg MCHC 34.0 (31.0-35.0) g/dl RDW 12.4 (11.0-16.0) % Plt Count 324 (160-400) X10*3/uL MPV 9.2 L (9.4-12.3) fL Immature Gran % (Auto) 0.3 (0.0-0.4) % Neut % (Auto) 69.4 (45-73) % Lymph % (Auto) 18.6 L (20-40) % [place] % (Auto) 9.1 (2-11) % Eos % (Auto) 2.3 (0-4) % Baso % (Auto) 0.3 (0-2) % Lymph # (Auto) 2.2 (1.2-4.9) X10*3/uL [place] # (Auto) 1.1 (0.1-1.2) X10*3/uL Eos # (Auto) 0.3 (0.0-0.4) X10*3/uL Baso # (Auto) 0.0 (0.0-0.2) X10*3/uL Abs Immat Gran (auto) 0.03 (0.00-0.03) X10*3/uL Absolute Neuts (auto) 8.3 (2.0-8.3) x10*3/uL Absolute Nucleated RBC 0.000 (0.0-0.012) X10*3/uL Nucleated RBC % (auto) 0.0 (0.0-0.2) /100WBC D-Dimer High Sensitivty < 150 NG/ML Sodium 140 (135-145) mmol/L Potassium 4.2 (3.3-5.1) mmol/L Chloride 108 (96-108) mmol/L Carbon Dioxide 20 L (22-29) mmol/L Anion Gap 16 (12-20) BUN 9 (9-16) mg/dL Creatinine 0.80 (0.5-1.4) mg/dL Estim Creat Clear Calc 119.9 Estimated GFR > 60 Random Glucose 93 (60-115) mg/dL Calcium 10.1 (8.4-10.2) mg/dL Magnesium 1.8 (1.6-2.6) mg/dL Total Bilirubin 0.5 (0.0-1.0) mg/dL Direct Bilirubin 0.2 (0.0-0.5) mg/dL AST 15 (5-31) U/L ALT 25 (0-31) U/L Alkaline Phosphatase 42 (39-117) U/L Troponin I High Sens < 2.7 (<3.5-17.0) ng/L B-Natriuretic Peptide < 10 (<100) pg/mL Total Protein 7.7 (6.5-8.0) g/dL Albumin 4.5 (3.5-5.0) g/dL COVID-19 (SANDRO) Negative (Negative) COVID-19 Clin Com See Note Independent Interpretation I performed an independent interpretation of an: EKG, Plain X-Ray (normal ) and Ultrasound Interpretation: Rate: 72 Rhythm: NSR [place]: normal Normal P waves. Normal SHANN[place]. Normal QRS complex. ST T wave : normal no [place] qTC: normal prior studies: no acute ischemia The study has been interpreted contemporaneously by me. . Radiology Impression Discussion of test interpretation with radiology: I have reviewed the radiologist's reading. External Record Review External record reviewed: Inpatient record Prescription Management I considered prescription management with: Other (prednisone and zofran) Discharge Plan Discharge Clinical Impression: Pleuritic chest pain, Pleurisy Patient Disposition: Home, Self-Care Instructions: Chest Pain (ED), Pleurisy (ED) Additional Instructions: normal chest xray, no pericardial effusion, negative BNP and troponin, normal ddimer. your WBC count was mildly elevated at 12. At this time no obvious cause of the pain possible pleurisy. will start on low dose steroids for pain. take with food. return for worsening pain, fevers, swelling of legs, dizziness, increasing pain or any other concerns. Prescriptions: New prednisone 20 mg tablet 40 mg PO DAILY 5 Days Qty: 10 0RF ondansetron 4 mg tablet,disintegrating 4 mg PO Q8H PRN (Reason: nausea and vomiting) Qty: 20 0RF No Action albuterol sulfate 90 mcg/actuation Hfa Aerosol Inhaler 1 inh INHALATION QID PRN (Reason: Wheezing) Patient Comments: las dose 10 years ago metformin 500 mg tablet 1,000 mg PO BID cholestyramine (with sugar) 4 gram powder PO spironolactone 100 mg tablet 100 mg PO DAILY dicyclomine 10 mg capsule 10 - 20 mg PO Q6H PRN (Reason: cramps) Interventions: ED Discharge Assessment Last Done: 03/07/23 06:10 Discharge Date/Time: 03/07/23 06:11
[2023-03-07 04:51] LABS: D Dimer High Sensitivity < 150 NG/ML
[2023-03-07] MEDS: 0.9 % Sodium Chloride 1,000 ML 999 ML IV (04:53)
[2023-03-07] MEDS: ondansetron HCL 4 MG/2 ML VIAL IVPUSH (04:53)
[2023-03-07 04:55] LABS: Alanine Aminotransferase 25 U/L (0-31); Albumin Level 4.5 g/dL (3.5-5.0); Alkaline Phosphatase 42 U/L (39-117); Anion Gap 16 (12-20); Aspartate Amino Transferase 15 U/L (5-31); Bilirubin Direct 0.2 mg/dL (0.0-0.5); Bilirubin Total 0.5 mg/dL (0.0-1.0); Blood Urea Nitrogen 9 mg/dL (9-16); Calcium 10.1 mg/dL (8.4-10.2); Carbon Dioxide 20 mmol/L (22-29); Chloride 108 mmol/L (96-108); Creatinine Clr Calc Pharmacy 119.9; Estimated Glomerular Filt Rate > 60; Glucose Random 93 mg/dL (60-115); Magnesium 1.8 mg/dL (1.6-2.6); Potassium 4.2 mmol/L (3.3-5.1); Sodium 140 mmol/L (135-145); Total Protein 7.7 g/dL (6.5-8.0)
[2023-03-07 04:59] LABS: B Type Natriuretic Peptide < 10 pg/mL (<100); Troponin-I High Sensitivity < 2.7 ng/L (<3.5-17.0)
[2023-03-07 05:04] LABS: COVID-19 Test Negative (Negative); IDNOW Serial# 6674DD1D
[2023-03-07 05:08] VITALS: BP 110/72; PULSE 81; RESP 14; TEMP 36.8; O2SAT 97
== END 2023-03-07 06:11 | disposition home or self-care (01) ==
PROVIDERS: Emergency Provider Emergency Medicine; PCP Nurse Practitioner
DX: R07.89 Other chest pain (principal); R11.2 Nausea with vomiting, unspecified; R09.1 Pleurisy; Z20.822 Contact with and (suspected) exposure to COVID-19; Z20.828 Contact with and (suspected) exposure to other viral communicable diseases; Z79.899 Other long term (current) drug therapy
CPT/HCPCS: 71045; 80048; 80076; 83735; 83880; 84484; 85025; 85379; 87635; 93005; 96361; 96374; 99284; J2405

== ENCOUNTER 2023-06-09 09:24 | Outpatient (AMB) | payer OTHER, SELFPAY ==
--- NOTE | 2023-06-09 09:26 | A.OFFVIS_ITS ---
Intake Intake Visit Reasons: OV-Rt knee 11/30/22 Intake Note: Norma alicea 22 year old female presents today for a follow up s/p right knee on 11/30/22 NE. Patient reports she is doing well, no pain or discomfort. Allergies No Known Allergies Allergy (Verified 06/09/23 09:26) HPI OV-Rt knee 11/30/22 HPI Details 22-year-old female who returns to the [facility] today for a follow-up of right knee , 11/30/22. She states after surgery she was attending PT and has been doing well. However; overtime, with working and increased activities she has noticed increased discomfort. She also c/o clicking in her knee and walks with a limp at the end of the day. She works a 12-hours shifts and reports she cannot do her shift without occasionally sitting and icing her knee. She has a history of ACL and meniscus repair surgery in the past. [facility]LY [facility] Medical History Asthma PCOS (polycystic ovarian syndrome) Surgical History H/O medial meniscus repair of right knee S/P ACL repair Social History Alcohol intake: current Alcohol intake frequency: holidays/special occasions only Patient Tobacco Use Status: Never used Tobacco Current occupational status: employed Current occupation: emergency nurse Review of Systems Const All systems reviewed & are unremarkable except as noted in HPI and below Physical Exam Extrem Other: Right knee: Skin intact, no erythema or joint effusion. Tenderness along the medial joint line. Full ROM with crepitus. Negative Kyle?s. No ligamentous laxity. NVI. Med joint line Assessment & Plan Assessment & Plan (1) S/P right knee arthroscopy: Code(s): Z98.890 - Other specified postprocedural states Plan We discussed options which include continuing home exercises program. I did send a prescription of naproxen to her pharmacy to take twice a day for 2 weeks. She was also placed in a Janumet knee brace in the office today. If symptoms persist or worsens, patient will contact the office to discuss cortisone injection, otherwise follow-up as needed. Medications: New naproxen 500 mg PO BID 60 tabs 3RF 30 days S93.409A - Sprain of unspecified ligament of unspecified ankle, initial encounter Patient Instructions: Scribed for Arcelia Shaw PA-C, by Vazquez Headley medical certification specialist, on 06/09/2023 at 9:30 AM EST. Arcelia Varma PA-C, have personally reviewed and agree with the information entered by the scribe. Coding Level of Care Code Est Pt Level 3 (15367) Diagnoses S/P right knee arthroscopy Z98.890
== END 2023-06-09 09:57 | disposition home or self-care (01) ==
PROVIDERS: PCP Nurse Practitioner; Visit Provider Physician Assistant
DX: S83.241D Other tear of medial meniscus, current injury, right knee, subsequent encounter (principal); M23.91 Unspecified internal derangement of right knee
CPT/HCPCS: 99214

== ENCOUNTER → 2023-06-09 09:24 | Outpatient (BNVA) | payer BC, SELFPAY | PROVIDERS: PCP Nurse Practitioner; Visit Provider Physician Assistant | DX: Z09 Encounter for follow-up examination after completed treatment for conditions other than malignant neoplasm (principal) | CPT/HCPCS: 99212 ==

== ENCOUNTER 2023-09-27 13:06 | Outpatient (REF) | payer OTHER, SELFPAY ==
[2023-09-27 14:07] LABS: IDNOW Serial# 6674DD1D; Strep A Nucleic Acid Negative (Negative)
[2023-09-27 14:40] LABS: Influenza A PCR NEGATIVE (Negative); Influenza B PCR NEGATIVE (Negative); Resp Syncy Virus RNA Qual PCR NEGATIVE (Negative); SARS COV2 PCR INHOUSE NEGATIVE (Negative)
== END 2023-09-27 13:07 | disposition home or self-care (01) ==
LOC: HO.LAB 13:06
PROVIDERS: PCP Nurse Practitioner; Visit Provider Physician Assistant Medical
DX: J02.9 Acute pharyngitis, unspecified (principal); Z11.52 Encounter for screening for COVID-19
CPT/HCPCS: 0241U; 87651

== ENCOUNTER 2024-06-25 10:31 | Outpatient (REF) | payer OTHER, SELFPAY ==
[2024-06-28 17:33] LABS: TS Negative Control Passed; TS Panel A 1; TS Panel B 2; TS Positive Control Passed; TSpotTB Negative (Negative)
== END 2024-06-25 10:32 | disposition home or self-care (01) ==
LOC: HO.LAB 10:31
PROVIDERS: PCP Nurse Practitioner; Visit Provider Physician Assistant Medical
DX: Z02.0 Encounter for examination for admission to educational institution (principal); Z11.7 Encounter for testing for latent tuberculosis infection
CPT/HCPCS: 36415; 86481

== ENCOUNTER 2024-08-30 12:19 | Day surgery (SDC) | payer OTHER, SELFPAY ==
[2024-08-28 14:26] VITALS: BMI 42.6
--- NOTE | 2024-08-29 12:33 | HO.ANESPROP2 ---
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 Fatty liver Allergic rhinitis Eating disorder Depression Asthma PCOS (polycystic ovarian syndrome) Family History Family history of problems with anesthesia: No Surgical History Surgical History History of ear surgery Hx of tonsillectomy Hx of right knee surgery Hx of cholecystectomy H/O medial meniscus repair of right knee S/P ACL repair History of Problems with Anesthesia: No Social History Social History Are you a primary care transition coordinator to a significant other at home: No Do you presently have visiting nurse or other home services: No Alcohol intake: current Alcohol intake frequency: holidays/special occasions only Patient Tobacco Use Status: Never used Tobacco Have you been hit, kicked, punched, or otherwise hurt by someone within the past year? If so, by whom?: No Are you DNR?: No Advance Directives: No Advance Directives Information Provided: Yes Recently lost weight without trying: No Nutrition Risks: No Nutritional Risk FDLMP: 3 weeks ago Current occupational status: employed Current occupation: emergency nurse Meds Allergies Allergy/AdvReac Type Severity Reaction Status Date / Time No Known Allergies Allergy Verified 08/30/24 12:45 Home Medications ?Medication ?Instructions ?Recorded ?Confirmed ?Last Taken ?Type spironolactone 100 mg tablet 100 mg PO DAILY 11/21/22 12/06/22 History norgestimate 0.25 mg-ethinyl 1 tab PO DAILY 08/28/24 08/28/24 Unknown History estradiol 35 mcg tablet Exam Height,Weight and Vital Signs: Height 5 ft 2 in Weight 105.687 kg Assessment and Plan Assessment Anesthesia Assessment: Chart Reviewed Final Anesthetic Review Family History of Problems with Anesthesia: No History of Problems with Anesthesia: No Documented by User: Rocio Ruby MD 08/30/24 13:18 PMFSH Past Medical History Medical History 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 Fatty liver Allergic rhinitis Eating disorder Depression Asthma PCOS (polycystic ovarian syndrome) Surgical History Surgical History History of ear surgery Hx of tonsillectomy Hx of right knee surgery Hx of cholecystectomy H/O medial meniscus repair of right knee S/P ACL repair Social History Social History Are you a primary care transition coordinator to a significant other at home: No Do you presently have visiting nurse or other home services: No Alcohol intake: current Alcohol intake frequency: holidays/special occasions only Patient Tobacco Use Status: Never used Tobacco Have you been hit, kicked, punched, or otherwise hurt by someone within the past year? If so, by whom?: No Are you DNR?: No Advance Directives: No Advance Directives Information Provided: Yes Recently lost weight without trying: No Nutrition Risks: No Nutritional Risk FDLMP: 3 weeks ago Current occupational status: employed Current occupation: emergency nurse Meds Allergies Allergy/AdvReac Type Severity Reaction Status Date / Time No Known Allergies Allergy Verified 08/30/24 12:45 Home Medications ?Medication ?Instructions ?Recorded ?Confirmed ?Last Taken ?Type spironolactone 100 mg tablet 100 mg PO DAILY 11/21/22 12/06/22 History norgestimate 0.25 mg-ethinyl 1 tab PO DAILY 08/28/24 08/28/24 Unknown History estradiol 35 mcg tablet Exam Airway Mallampati Class: II TM Dist: >3cm Neck ROM: Full Loose/Missing/Broken Teeth: No Heart: RRR Lungs: CTA Assessment and Plan Assessment Anesthesia Assessment: Anesthesia Plan Discussed Final Anesthetic Review NPO: Yes ASA Class: III Final Preanesthetic Review: Meds/Allgs Chart Reviewed, Consent Obtained/Reviewed and Anes Risks/Benef Reviewed Patient Risk: Intermediate Procedure Risk: Intermediate Anesthetic Plan Anesthetic Plan: MAC: Disposition: Standard PACU
[2024-08-30 12:33] VITALS: BMI 41.5
[2024-08-30] MEDS: Lactated Ringers 1,000 ML 100 ML IVCONT (12:35)
[2024-08-30 12:44] VITALS: BP 135/85; PULSE 85; RESP 18; TEMP 36.6; O2SAT 98
[2024-08-30 13:02] LABS: UPreg QC Valid YES; Urine Pregnancy NEGATIVE (NEGATIVE)
[2024-08-30 13:55] VITALS: BP 108/69; PULSE 78; RESP 18; TEMP 36.1; O2SAT 99
--- NOTE | 2024-08-30 14:02 | PM.OP ---
Brief Operative Note Date of Service: 08/30/24 Pre-op diagnosis: Nausea Post-op diagnosis: other (Small hiatal hernia) Procedure: EGD with biopsies Surgeon: Ray Chandler MD Anesthesia: MAC Was an Boiler Operators Supervisor used for this Procedure?: No Estimated blood loss (mL): 2.0 Pathology: other (A. Descending duodenum B. Gastric antrum C. EG Junction at 35cm) Condition: stable Disposition: PACU
[2024-08-30 14:11] VITALS: BP 117/68; PULSE 87; RESP 17; TEMP 36.1; O2SAT 97
--- NOTE | 2024-08-30 15:10 | OP_ITS ---
DATE OF SERVICE: 08/30/2024 SURGEON: Ray Chandler MD INDICATIONS: The patient presents for evaluation of persistent nausea. Full consent has been obtained from her for this, including risks of bleeding and perforation. PREOPERATIVE DIAGNOSIS: Nausea. POSTOPERATIVE DIAGNOSIS: PROCEDURE PERFORMED: Esophagogastroduodenoscopy with biopsies. ESTIMATED BLOOD LOSS: COMPLICATIONS: ANESTHESIA: Monitored anesthesia care. ASSISTANTS: SPECIMENS: POSTOPERATIVE DIAGNOSES: Nausea, small hiatal hernia, rule out celiac disease, rule out Giardia, rule out H pylori. DESCRIPTION OF PROCEDURE: The patient was placed in the left lateral decubitus position. The Olympus video gastroscope was passed in the posterior oropharynx and upper esophagus under direct vision. The scope was passed slowly to the distal esophagus. The gastroesophageal junction appeared at 35 cm. There was a very minimal irregularity, consistent with some possible reflux, but no evidence of esophagitis nor Llamas's esophagus. The scope entered the stomach. There was a small hiatal hernia. The scope was advanced to the pylorus and the duodenum was cannulated to the descending portion. The duodenum including the bulb appeared normal without mass or ulceration. Biopsies were obtained from 2nd and 3rd portions of duodenum. The scope was withdrawn back in the stomach. The gastric antrum and body appeared normal with good peristalsis. Biopsies were obtained from the gastric antrum. The scope was retroflexed, visualizing the proximal stomach carefully which appeared normal, without any sign of mass or ulceration. Scope was straightened and withdrawn back in the esophagus. Biopsies were obtained at the EG junction at 35 cm. Proximal to that, the esophageal mucosa appeared normal. The scope was withdrawn from the patient. She tolerated the procedure well and was returned to the recovery area in stable condition. IMPRESSION: 1. Small hiatal hernia. 2. Rule out H pylori. 3. Rule out Giardia, rule out celiac disease. PLAN: The results of biopsies will be checked. She has been using Zofran with good symptomatic relief as needed for nausea. She had been previously on famotidine without any relief of her nausea. I shall put her on a trial of omeprazole 20 mg daily to see if that could help improve things in the event we are dealing with some silent reflux that was refractory to the H2 martha. She otherwise appears very well and if the PPI does not help things, then we could simply continue to treat things symptomatically with p.r.n. Zofran. She will be seen in followup as well. MD YI Finch/ANNA / [id number] MTDD
== END 2024-08-30 14:41 | disposition home or self-care (01) ==
PROVIDERS: Nurse Practitioner; PCP Nurse Practitioner; Visit Provider Internal Medicine
PROC: 0DJ08ZZ Inspection of Upper Intestinal Tract, Via Natural or Artificial Opening Endoscopic (ICD-10-PCS; CPT 43235; principal; 2024-08-30 13:50)
DX: R11.0 Nausea (principal); K29.80 Duodenitis without bleeding; K44.9 Diaphragmatic hernia without obstruction or gangrene; K76.0 Fatty (change of) liver, not elsewhere classified; J45.909 Unspecified asthma, uncomplicated; D80.2 Selective deficiency of immunoglobulin A [IgA]; E28.2 Polycystic ovarian syndrome; F32.A Depression, unspecified; Z79.84 Long term (current) use of oral hypoglycemic drugs; Z79.899 Other long term (current) drug therapy
CPT/HCPCS: 43239; 81025; 88305; 88313; 88342

== ENCOUNTER 2025-01-06 14:18 | Outpatient (REF) | payer OTHER, SELFPAY ==
[2025-01-06 15:01] LABS: Hemoglobin A1C 118.1925 umol/L; Total Hemoglobin (HGBA1C) 3694.0011 umol/L
[2025-01-06 15:15] LABS: Albumin Level 5.0 g/dL (3.5-5.0); Alkaline Phosphatase 41 U/L (39-117); Anion Gap 15 (12-20); Aspartate Amino Transferase 37 U/L (5-31); Blood Urea Nitrogen 13 mg/dL (9-16); Calcium 9.7 mg/dL (8.4-10.2); Carbon Dioxide 22 mmol/L (22-29); Chloride 105 mmol/L (96-108); Cholesterol 225 mg/dL (<200); Estimated Glomerular Filt Rate > 60; HDL Cholesterol 42 mg/dL (>40); Magnesium 1.8 mg/dL (1.6-2.6); Potassium 4.2 mmol/L (3.3-5.1); Sodium 138 mmol/L (135-145); Total Protein 7.7 g/dL (6.5-8.0); Triglycerides 226 mg/dL (<150)
[2025-01-06 15:31] LABS: Alanine Aminotransferase 78 U/L (0-31)
== END 2025-01-06 14:19 | disposition home or self-care (01) ==
LOC: HO.LAB 14:18
PROVIDERS: PCP Nurse Practitioner; Visit Provider Nurse Practitioner
DX: F50.810 Binge eating disorder, mild (principal); R73.01 Impaired fasting glucose
CPT/HCPCS: 36415; 80053; 80061; 83036; 83735

== ENCOUNTER 2025-01-08 15:06 | Emergency (ER) | payer OTHER, SELFPAY ==
[2025-01-08 15:12] VITALS: BP 140/91; PULSE 89; RESP 16; TEMP 36.1; O2SAT 99; BMI 41.6
--- NOTE | 2025-01-08 15:17 | ED.EAR ---
HPI - Ear Problem General Chief complaint: Ear Problems Stated complaint: Ear pain, neck pain Time Seen by Provider: 01/08/25 16:32 Source: patient Mode of arrival: ambulatory Limitations: no limitations History of Present Illness ED Provider: HPI Narrative: Patient comes here for pain in the right ear for last 2 days taking amoxicillin home without relief no fever no chills no history of infections in the past no ear discharge Related Data Home Medications ?Medication ?Instructions ?Recorded ?Confirmed spironolactone 100 mg tablet 100 mg PO DAILY 11/21/22 norgestimate 0.25 mg-ethinyl 1 tab PO DAILY 08/28/24 08/28/24 estradiol 0.035 mg tablet Previous Rx's ?Medication ?Instructions ?Recorded amoxicillin 875 mg-potassium 1 tab PO BID #20 tabs 01/08/25 clavulanate 125 mg tablet Allergies Allergy/AdvReac Type Severity Reaction Status Date / Time No Known Allergies Allergy Verified 01/08/25 15:13 Review of Systems Review of Systems: Yes all other systems are reviewed and are negative [facility] Past Medical History Medical History 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 Fatty liver Allergic rhinitis Eating disorder Depression Asthma PCOS (polycystic ovarian syndrome) Surgical History History of ear surgery Hx of tonsillectomy Hx of right knee surgery Hx of cholecystectomy H/O medial meniscus repair of right knee S/P ACL repair Social History Social History Are you a primary home care rn to a significant other at home: No Do you presently have visiting nurse or other home services: No Alcohol intake: current Alcohol intake frequency: holidays/special occasions only Patient Tobacco Use Status: Never used Tobacco Advance Directives: No Advance Directives Information Provided: No Current occupational status: employed Current occupation: emergency nurse Physical Exam Vital Signs: Vital Signs: Last Vital Signs Temp 96.9 F 01/08/25 15:12 Pulse 89 01/08/25 15:12 Resp 16 01/08/25 15:12 BP 140/91 H 01/08/25 15:12 Pulse Ox 99 01/08/25 15:12 O2 Del Method Room Air 01/08/25 15:12 BMI result Body Mass Index 41.6 Appearance: Alert. Oriented X3. No acute distress. ENT: Pharynx normal. Oral Mucosa moist tympanic purulent discharge behind EAC normal anterior and posterior auricular lymph node enlarged Neck: Normal inspection. Neck supple. CVS: Normal heart rate and rhythm. Pulses normal. Respiratory: No respiratory distress. Equal air entry bilateral, no wheezing/rales/rhonchi Abdomen: Soft and nontender. Skin: Skin warm and dry. Normal skin color. Normal skin turgor. Extremities: No lower extremity edema. No calf tenderness Neuro: Oriented X 3. Course Course Course Narrative: RME, this is a rapid medical exam performed by Joss Bah please refer to primary provider for complete H&P- 24-year-old female presents for evaluation of right ear pain. She was started on amoxicillin 2 days ago due to pain. She has a history of chronic otitis externa. On exam she has mastoid tenderness, right postauricular lymphadenopathy. She has pain to her right jaw with opening her mouth. Clinically she likely has otitis externa. Plan for labs including blood cultures as the patient is complaining of chills Medications Administered Discontinued Medications Generic Name Dose Route Start Last Admin Trade Name Freq PRN Reason Stop Dose Admin Ceftriaxone Sodium 2 gm 01/08/25 16:58 01/08/25 17:03 Ceftriaxone Sodium 2 Gm Vial IVPUSH 01/08/25 16:59 2 gm ONCE ONE Administration Ketorolac Tromethamine 30 mg 01/08/25 16:58 01/08/25 17:03 Ketorolac Tromethamine 30 Mg/Ml Vial IVPUSH 01/08/25 16:59 30 mg ONCE ONE Administration Medical Decision Making Medical Decision Making [facility] Narrative: Patient's right otitis media tympanic membrane is bulging requested IV Rocephin as showed taking amoxicillin give her 2 g of IV Rocephin advised to continue Augmentin Lab Data [facility] Lab Attestation statement: I reviewed the patient's lab results. 01/08/25 15:32 01/08/25 15:32 Labs: Lab Results 01/08/25 Range/Units 15:32 WBC 10.2 (4.8-10.8) X10*3/uL RBC 4.72 (4.20-5.50) X10*6/uL Hgb 13.3 (12.0-16.0) g/dl Hct 39.2 (37.0-47.0) % MCV 83.1 (80.0-98.0) fL MCH 28.2 (27.0-33.0) pg MCHC 33.9 (31.0-35.0) g/dl RDW 12.4 (11.0-16.0) % Plt Count 324 (160-400) X10*3/uL MPV 9.2 L (9.4-12.3) fL Immature Gran % (Auto) 0.3 (0.0-0.4) % Neut % (Auto) 72.1 (45-73) % Lymph % (Auto) 17.4 L (20-40) % [place] % (Auto) 8.9 (2-11) % Eos % (Auto) 1.1 (0-4) % Baso % (Auto) 0.2 (0-2) % Lymph # (Auto) 1.8 (1.2-4.9) X10*3/uL [place] # (Auto) 0.9 (0.1-1.2) X10*3/uL Eos # (Auto) 0.1 (0.0-0.4) X10*3/uL Baso # (Auto) 0.0 (0.0-0.2) X10*3/uL Abs Immat Gran (auto) 0.03 (0.00-0.03) X10*3/uL Absolute Neuts (auto) 7.4 (2.0-8.3) x10*3/uL Absolute Nucleated RBC 0.000 (0.0-0.012) X10*3/uL Nucleated RBC % (auto) 0.0 (0.0-0.2) /100WBC Sodium 140 (135-145) mmol/L Potassium 4.0 (3.3-5.1) mmol/L Chloride 106 (96-108) mmol/L Carbon Dioxide 24 (22-29) mmol/L Anion Gap 14 (12-20) BUN 13 (9-16) mg/dL Creatinine 0.70 (0.5-1.4) mg/dL Estim Creat Clear Calc 138.4 Estimated GFR > 60 Random Glucose 95 (60-115) mg/dL Lactic Acid 0.8 (0.5-2.0) mmol/L Calcium 10.0 (8.4-10.2) mg/dL Beta HCG, Quant < 2 mIU/mL Discharge Plan Discharge Clinical Impression: Otitis media Patient Disposition: Home, Self-Care Instructions: Ear Infection (ED) Additional Instructions: Take antibiotics as Prescribed Ibuprofen for pain Prescriptions: New amoxicillin-pot clavulanate 875-125 mg tablet 1 tab PO BID Qty: 20 0RF No Action norgestimate-ethinyl estradiol 0.25-35 mg-mcg tablet 1 tab PO DAILY spironolactone 100 mg tablet 100 mg PO DAILY Print Language: Vietnamese
[2025-01-08 15:37] LABS: MANUAL DIFF FLAG NO
[2025-01-08 15:39] LABS: Hematocrit 39.2 % (37.0-47.0); Hemoglobin 13.3 g/dl (12.0-16.0); Imm Gran Abs Auto 0.03 X10*3/uL (0.00-0.03); Imm Gran Pct Auto 0.3 % (0.0-0.4); Lymphocytes Absolute Auto 1.8 X10*3/uL (1.2-4.9); Mean Corpuscular HGB Conc 33.9 g/dl (31.0-35.0); Mean Corpuscular Hemoglobin 28.2 pg (27.0-33.0); Mean Corpuscular Volume 83.1 fL (80.0-98.0); NRBC Abs Auto 0.000 X10*3/uL (0.0-0.012); NRBC Pct Auto 0.0 /100WBC (0.0-0.2); Platelet Count 324 X10*3/uL (160-400); Red Blood Count 4.72 X10*6/uL (4.20-5.50); White Blood Count 10.2 X10*3/uL (4.8-10.8)
[2025-01-08 15:58] LABS: Anion Gap 14 (12-20); Blood Urea Nitrogen 13 mg/dL (9-16); Calcium 10.0 mg/dL (8.4-10.2); Carbon Dioxide 24 mmol/L (22-29); Chloride 106 mmol/L (96-108); Creatinine Clr Calc Pharmacy 138.4; Estimated Glomerular Filt Rate > 60; Potassium 4.0 mmol/L (3.3-5.1); Sodium 140 mmol/L (135-145)
--- NOTE | 2025-01-08 16:58 | ED_ITS ---
HPI - Ear Problem General Chief complaint: Ear Problems Stated complaint: Ear pain, neck pain Time Seen by Provider: 01/08/25 16:32 Source: patient Mode of arrival: ambulatory Limitations: no limitations History of Present Illness ED Provider: HPI Narrative: Patient complaining of right earache for last 2 days took amoxicillin at home with partial response still having the pain also noticed lymph nodes around the ear no fever no chills had low-grade fever Related Data Home Medications ?Medication ?Instructions ?Recorded ?Confirmed spironolactone 100 mg tablet 100 mg PO DAILY 11/21/22 norgestimate 0.25 mg-ethinyl 1 tab PO DAILY 08/28/24 0 08/28/24 estradiol 0.035 mg tablet Previous Rx's ?Medication ?Instructions ?Recorded amoxicillin 875 mg-potassium 1 tab PO BID #20 tabs clavulanate 125 mg tablet Allergies Allergy/AdvReac Type Severity Reaction Status Date / Time No Known Allergies Allergy Verified 01/08/25 15:13 Review of Systems 2 Review of Systems: Yes all other systems are reviewed and are negative [facility] Past Medical History Medical History 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 Fatty liver Allergic rhinitis Eating disorder Depression Asthma PCOS (polycystic ovarian syndrome) Surgical History History of ear surgery Hx of tonsillectomy Hx of right knee surgery Hx of cholecystectomy H/O medial meniscus repair of right knee S/P ACL repair Social History Social History Are you a primary managed care provider to a significant other at home: No Do you presently have visiting nurse or other home services: No Alcohol intake: current Alcohol intake frequency: holidays/special occasions only Patient Tobacco Use Status: Never used Tobacco Advance Directives: No Advance Directives Information Provided: No Current occupational status: employed Current occupation: emergency nurse Physical Exam 2 Vital Signs: Vital Signs: Last Vital Signs Temp 97.8 F 01/08/25 17:22 Pulse 89 01/08/25 17:22 Resp 18 01/08/25 17:22 BP 119/74 01/08/25 17:22 Pulse Ox 99 01/08/25 17:22 O2 Del Method Room Air 01/08/25 17:22 BMI result Body Mass Index 41.6 Appearance: Alert. Oriented X3. No acute distress. Eyes: no pallor or icterus ENT: Pharynx normal Oral Mucosa moist tympanic membrane intact right tympanic membrane erythematous and bulging with periauricular and posterior auricular lymph nodes enlarged mastoid nontender Neck: Normal inspection. Neck supple. CVS: Normal heart rate and rhythm. Pulses normal. Respiratory: No respiratory distress. Equal air entry bilateral, no wheezing/rales/rhonchi Abd: soft, not tender Skin: Skin warm and dry. Normal skin color. Normal skin turgor. Extremities: No lower extremity edema, no calf tenderness Neuro: Oriented X 3. Medications Administered Discontinued Medications Generic Name Dose Route Start Last Admin Trade Name Freq PRN Reason Stop Dose Admin Ceftriaxone Sodium 2 gm 01/08/25 16:58 01/08/25 17:03 Ceftriaxone Sodium 2 Gm Vial IVPUSH 01/08/25 16:59 2 gm ONCE ONE Administration Ketorolac Tromethamine 30 mg 01/08/25 16:58 01/08/25 17:03 Ketorolac Tromethamine 30 Mg/Ml Vial IVPUSH 01/08/25 16:59 30 mg ONCE ONE Administration Medical Decision Making Medical Decision Making MDM Narrative: Patient's uncomplicated otitis media prescribe Augmentin was given a dose of Rocephin in the ER Lab Data 01/08/25 15:32 01/08/25 15:32 Labs: Lab Results 01/08/25 Range/Units 15:32 WBC 10.2 (4.8-10.8) X10*3/uL RBC 4.72 (4.20-5.50) X10*6/uL Hgb 13.3 (12.0-16.0) g/dl Hct 39.2 (37.0-47.0) % MCV 83.1 (80.0-98.0) fL MCH 28.2 (27.0-33.0) pg MCHC 33.9 (31.0-35.0) g/dl RDW 12.4 (11.0-16.0) % Plt Count 324 (160-400) X10*3/uL MPV 9.2 L (9.4-12.3) fL Immature Gran % (Auto) 0.3 (0.0-0.4) % Neut % (Auto) 72.1 (45-73) % Lymph % (Auto) 17.4 L (20-40) % [place] % (Auto) 8.9 (2-11) % Eos % (Auto) 1.1 (0-4) % Baso % (Auto) 0.2 (0-2) % Lymph # (Auto) 1.8 (1.2-4.9) X10*3/uL [place] # (Auto) 0.9 (0.1-1.2) X10*3/uL Eos # (Auto) 0.1 (0.0-0.4) X10*3/uL Baso # (Auto) 0.0 (0.0-0.2) X10*3/uL Abs Immat Gran (auto) 0.03 (0.00-0.03) X10*3/uL Absolute Neuts (auto) 7.4 (2.0-8.3) x10*3/uL Absolute Nucleated RBC 0.000 (0.0-0.012) X10*3/uL Nucleated RBC % (auto) 0.0 (0.0-0.2) /100WBC Sodium 140 (135-145) mmol/L Potassium 4.0 (3.3-5.1) mmol/L Chloride 106 (96-108) mmol/L Carbon Dioxide 24 (22-29) mmol/L Anion Gap 14 (12-20) BUN 13 (9-16) mg/dL Creatinine 0.70 (0.5-1.4) mg/dL Estim Creat Clear Calc 138.4 Estimated GFR > 60 Random Glucose 95 (60-115) mg/dL Lactic Acid 0.8 (0.5-2.0) mmol/L Calcium 10.0 (8.4-10.2) mg/dL Beta HCG, Quant < 2 mIU/mL Discharge Plan Discharge Clinical Impression: Otitis media Patient Disposition: Home, Self-Care Instructions: Ear Infection (ED) Additional Instructions: Take antibiotics as Prescribed Ibuprofen for pain Prescriptions: New amoxicillin-pot clavulanate 875-125 mg tablet 1 tab PO BID Qty: 20 0RF No Action norgestimate-ethinyl estradiol 0.25-35 mg-mcg tablet 1 tab PO DAILY spironolactone 100 mg tablet 100 mg PO DAILY Interventions: ED Discharge Assessment Last Done: 01/08/25 17:22 Discharge Date/Time: 01/08/25 17:22 Print Language: Kyrgyz
[2025-01-08 17:22] VITALS: BP 119/74; PULSE 89; RESP 18; TEMP 36.6; O2SAT 99
== END 2025-01-08 17:22 | disposition home or self-care (01) ==
PROVIDERS: Physician Assistant; Emergency Provider Internal Medicine
DX: H66.90 Otitis media, unspecified, unspecified ear (principal); H92.01 Otalgia, right ear
CPT/HCPCS: 36415; 80048; 83605; 84702; 85025; 87040; 96374; 96375; 99284; J0696; J1885